=== PATIENT | female | born 1985 | race Caucasian/White ===

== ENCOUNTER 2016-08-19 12:46 | Emergency (ER) | payer OTHER, BC ==
[~2016-08-19 12:46] MED LIST: CIPRO PO; IMODIUM2 MG PO; K-DUR20 ME2 PO; MACROBID 100 M100 MG PO; NO MEDICATIONS; NUVARING V1 VAG.RING; PYRIDIUM PO; ZOFRANODT PO
== END 2016-08-19 12:52 | disposition home or self-care (01) ==
LOC: SED 12:46
DX: S16.1XXA Strain of muscle, fascia and tendon at neck level, initial encounter (principal); Z88.2 Allergy status to sulfonamides; V49.40XA Driver injured in collision with unspecified motor vehicles in traffic accident, initial encounter; Y92.410 Unspecified street and highway as the place of occurrence of the external cause
CPT/HCPCS: 99283